=== PATIENT | male | born 1985 | race Caucasian/White ===

== ENCOUNTER 2018-07-08 15:38 | Emergency (ER) | payer BC, OTHER ==
[2018-07-08] MEDS ORDERED: LIDOCAINE 1% MPF 5 ML VIAL ONE (17:05)
[2018-07-08] MEDS ORDERED: TETANUS & DIPHTHERIA TOX,ADULT 0.5 ML VIAL ONE (17:06)
--- NOTE | 2018-07-08 18:16 | EDPHYS ---
Physician Documentation [facility] Name: Tan Key Age: 33 yrs Sex: Male : 1985 Arrival Date: 07/08/2018 Time: 15:40 Bed 25 Private MD: Berhane Wise ED Physician Abraham Keyes HPI: 07/08 18:15 This 33 yrs old Male presents to ER via Ambulatory with complaints of pm1 LACERATION TO THUMB. 18:15 The patient or guardian reports a laceration, irregular, 2 cm(s). The complaints affect pm1 the dorsal aspect of proximal phalanx of left thumb. Context: The problem was sustained at home, resulted from cut on automotive fan while working on car. Onset: The symptoms/episode began/occurred just prior to arrival. Modifying factors: The symptoms are alleviated by pressure to area, the symptoms are aggravated by nothing. Associated signs and symptoms: Pertinent negatives: cyanosis distally, decreased sensation distally, numbness distally, tingling distally. The patient has not experienced similar symptoms in the past. The patient has not recently seen a physician. Historical: - Allergies: 15:46 No Known Allergies; aa5 - PMHx: 15:46 None; aa5 - PSHx: 15:46 Knee surgery; aa5 - Immunization history:: Last tetanus immunization: unknown. - Social history:: Smoking status: Patient/guardian denies using tobacco. - Ebola Screening: : No symptoms or risks identified at this time. ROS: 18:15 Constitutional: Negative for fever, chills, and weight loss, Eyes: Negative for injury, pm1 pain, redness, and discharge, ENT: Negative for injury, pain, and discharge, Neck: Negative for injury, pain, and swelling, Cardiovascular: Negative for chest pain, palpitations, and edema, Respiratory: Negative for shortness of breath, cough, wheezing, and pleuritic chest pain, Abdomen/GI: Negative for abdominal pain, nausea, vomiting, diarrhea, and constipation, Back: Negative for injury and pain. 18:15 Neuro: Negative for headache, weakness, numbness, tingling, and seizure. 18:15 MS/extremity: Positive for laceration, of the dorsal aspect of proximal phalanx of left thumb, Negative for decreased range of motion, deformity. 18:15 Skin: Positive for laceration(s). Exam: 18:15 Constitutional: This is a well developed, well nourished patient who is awake, alert, pm1 and in no acute distress. Head/Face: Normocephalic, atraumatic. Eyes: Pupils equal round and reactive to light, extra-ocular motions intact. Lids and lashes normal. Conjunctiva and sclera are non-icteric and not injected. Cornea within normal limits. Periorbital areas with no swelling, redness, or edema. ENT: Nares patent. No nasal discharge, no septal abnormalities noted. Tympanic membranes are normal and external auditory canals are clear. Oropharynx with no redness, swelling, or masses, exudates, or evidence of obstruction, uvula midline. Mucous membranes moist. Neck: Trachea midline, no thyromegaly or masses palpated, and no cervical lymphadenopathy. Supple, full range of motion without nuchal rigidity, or vertebral point tenderness. No Meningismus. Chest/axilla: Normal chest wall appearance and motion. Nontender with no deformity. No lesions are appreciated. Cardiovascular: Regular rate and rhythm with a normal S1 and S2. No gallops, murmurs, or rubs. Normal PMI, no JVD. No pulse deficits. Respiratory: Lungs have equal breath sounds bilaterally, clear to auscultation and percussion. No rales, rhonchi or wheezes noted. No increased work of breathing, no retractions or nasal flaring. Abdomen/GI: Soft, non-tender, with normal bowel sounds. No distension or tympany. No guarding or rebound. No evidence of tenderness throughout. Back: No spinal tenderness. No costovertebral tenderness. Full range of motion. 18:15 Skin: Appearance: normal except for affected area, injury, laceration(s), the wound is approximately 2 cm(s), with a depth of 1 cm(s), of the dorsal aspect of proximal phalanx of left thumb. 18:15 Neuro: Orientation: is normal, Gait: is steady, at a normal pace, without difficulty. Vital Signs: 15:48 BP 136 / 76; Pulse 59; Resp 16 S; Temp 97.0(TE); Pulse Ox 98% on R/A; Weight 99.79 kg aa5 (R); Height 6 ft. 2 in. (187.96 cm) (R); Pain 3/10; 15:48 Body Mass Index 28.25 (99.79 kg, 187.96 cm) aa5 Laceration: 18:15 Wound Repair of 2cm ( 0.8in ) subcutaneous laceration to dorsal aspect of proximal pm1 phalanx of left thumb. Irregularly shaped.. Distal neuro/vascular/tendon intact. Anesthesia: Local anesthetic administered with 1 mls of 1% lidocaine. Wound prep: Extensive cleansing with betadine with hibiclenz by me, Wound irrigation with saline by me, Wound explored extensively, Copious irrigation. Skin closed with 3 5-0 Prolene using horizontal mattress sutures and sterile technique. Dressed with Neosporin, 4x4's. Patient tolerated well. MDM: 16:16 Patient medically screened. pm1 18:14 Data reviewed: vital signs. Data interpreted: Pulse oximetry: on room air is 98 %. pm1 Interpretation: normal. Counseling: I had a detailed discussion with the patient and/or guardian regarding: the historical points, exam findings, and any diagnostic results supporting the discharge/admit diagnosis, the need for outpatient follow up, to return to the emergency department if symptoms worsen or persist or if there are any questions or concerns that arise at home. 07/08 16:33 Order name: Prolene, Sutures; Complete Time: 17:03 pm1 07/08 16:33 Order name: Dressing - Wound; Complete Time: 17:03 pm1 07/08 16:33 Order name: Gloves, Sterile; Complete Time: 17:03 pm1 07/08 16:33 Order name: Setup Suture Tray; Complete Time: 17:03 pm1 07/08 16:33 Order name: Wound Care; Complete Time: 17:03 pm1 Administered Medications: 17:03 Drug: Tetanus-Diphtheria Toxoid Adult 0.5 ml {Flour Distributor: [employer]. Exp: ss 06/13/2020. Lot #: [id number]. } Route: IM; Site: right deltoid; 18:07 Follow up: Response: No adverse reaction 18:06 Drug: Lidocaine (1 %) 5 ml {Note: 2-3 mL administered by DANICA Kowk.} Volume: 5 ml; ss Route: Infiltration; Disposition: 07/09 06:19 Co-signature as Attending Physician, Abraham Keyes MD I agree with the assessment and renan plan of care. Disposition: 07/08/18 18:15 Discharged to Home. Impression: Laceration without foreign body of left thumb without damage to nail. - Condition is Stable. - Discharge Instructions: Laceration Care, Adult. - Prescriptions for Keflex 500 mg Oral Capsule - take 1 capsule by ORAL route every 12 hours for 10 days; 20 capsule. Tylenol- Codeine #3 300-30 mg Oral Tablet - take 1 tablet by ORAL route every 6 hours As needed; 12 tablet. - Medication Reconciliation Form, Thank You Letter, Antibiotic Education, Prescription Opioid Use form. - Follow up: Emergency Department; When: As needed; Reason: Worsening of condition. Follow up: Berhane Wise MD; When: 10 - 14 days; Reason: Wound Recheck, Recheck today's complaints, Continuance of care, Staple/Suture removal, Re-evaluation by your physician. - Problem is new. - Symptoms have improved. Signatures: Abraham Keyes MD MD cha Calderon, Audri, RN RN aa5 Anna Davidson RN RN ss Sundar Carrero NP [employer]PER[employer] pm1 Corrections: (The following items were deleted from the chart) 07/08 18:26 18:15 07/08/2018 18:15 Discharged to Home. Impression: Laceration without foreign body ss of left thumb without damage to nail. Condition is Stable. Forms are Medication Reconciliation Form, Thank You Letter, Antibiotic Education, Prescription Opioid Use. Follow up: Emergency Department; When: As needed; Reason: Worsening of condition. Follow up: Berhane Wise; When: 10 - 14 days; Reason: Wound Recheck, Recheck today's complaints, Continuance of care, Staple/Suture removal, Re-evaluation by your physician. Problem is new. Symptoms have improved. pm1
--- NOTE | 2018-07-08 18:16 | ER ---
Nurse's Notes [facility] Name: Tan Key Age: 33 yrs Sex: Male : 1985 Arrival Date: 07/08/2018 Time: 15:40 Bed 25 Private MD: Berhane Wise Diagnosis: Laceration without foreign body of left thumb without damage to nail Presentation: 07/08 15:46 Presenting complaint: Patient states: "A fan from a car came off and it got my hand". aa5 Laceration approximately 1 cm long noted to left thumb, no active bleeding noted. Transition of care: patient was not received from another setting of care. Onset of symptoms was June 2018. Risk Assessment: Do you want to hurt yourself or someone else? Patient reports no desire to harm self or others. Initial Sepsis Screen: Does the patient meet any 2 criteria? No. Patient's initial sepsis screen is negative. Does the patient have a suspected source of infection? No. Patient's initial sepsis screen is negative. Care prior to arrival: None. 15:46 Method Of Arrival: Ambulatory aa5 15:46 Acuity: SANKET 4 aa5 Historical: - Allergies: 15:46 No Known Allergies; aa5 - PMHx: 15:46 None; aa5 - PSHx: 15:46 Knee surgery; aa5 - Immunization history:: Last tetanus immunization: unknown. - Social history:: Smoking status: Patient/guardian denies using tobacco. - Ebola Screening: : No symptoms or risks identified at this time. Screenin:20 Abuse screen: Denies threats or abuse. Denies injuries from another. Nutritional ss screening: No deficits noted. Tuberculosis screening: No symptoms or risk factors identified. Never had TB. Fall Risk None identified. Assessment: 16:20 General: Appears in no apparent distress. comfortable, Behavior is calm, cooperative. ss Pain: Complains of pain in dorsal aspect of proximal phalanx of left thumb Pain currently is 3 out of 10 on a pain scale. Pain began 3 hours ago. Is continuous. Neuro: Level of Consciousness is awake, alert, obeys commands, Oriented to person, place, time, situation. Cardiovascular: Capillary refill < 3 seconds is brisk in bilateral fingers Patient's skin is warm and dry. Respiratory: Airway is patent Respiratory effort is even, unlabored, Respiratory pattern is regular, symmetrical. Derm: Skin is pink, warm \\T\\ dry. Injury Description: Laceration sustained to dorsal aspect of proximal phalanx of left thumb is 0.5 to 2.5 cm long, was sustained 2-4 hours ago. no active bleeding noted at this time. 17:00 Reassessment: awaiting for sutures to be placed. ss 17:40 Reassessment: Wound care: wound soaking in NS + Betadine solution. ss Vital Signs: 15:48 BP 136 / 76; Pulse 59; Resp 16 S; Temp 97.0(TE); Pulse Ox 98% on R/A; Weight 99.79 kg aa5 (R); Height 6 ft. 2 in. (187.96 cm) (R); Pain 3/10; 15:48 Body Mass Index 28.25 (99.79 kg, 187.96 cm) aa5 ED Course: 15:40 Patient arrived in ED. rg4 15:40 Berhane Wise MD is Private Physician. rg4 15:46 Arm band placed on. aa5 15:48 Triage completed. aa5 16:15 Sundar Carrero NP is PHCP. pm1 16:15 Abraham Keyes MD is Attending Physician. pm1 16:17 Anna Davidson RN is Primary Nurse. ss 16:20 Patient has correct armband on for positive identification. Bed in low position. Call ss light in reach. 18:14 Berhane Wise MD is Referral Physician. pm1 18:24 No provider procedures requiring assistance completed. Patient did not have IV access ss during this emergency room visit. Wound care: to laceration located on dorsal aspect of proximal phalanx of left thumb was cleaned with soap and water, soaked in Betadine solution, irrigated with normal saline, dressed with Neosporin, 4X4s, Kerlix, Patient tolerated well. Administered Medications: 17:03 Drug: Tetanus-Diphtheria Toxoid Adult 0.5 ml {Clinical Trial Head: [employer]. Exp: ss 06/13/2020. Lot #: [id number]. } Route: IM; Site: right deltoid; 18:07 Follow up: Response: No adverse reaction ss 18:06 Drug: Lidocaine (1 %) 5 ml {Note: 2-3 mL administered by DANICA Kwok.} Volume: 5 ml; ss Route: Infiltration; Outcome: 18:15 Discharge ordered by MD. pm1 18:24 Discharged to home ambulatory, with family. 18:24 Condition: good 18:24 Discharge instructions given to patient, family, Instructed on discharge instructions, follow up and referral plans. medication usage, Demonstrated understanding of instructions, follow-up care, medications, Prescriptions given X 2. 18:26 Patient left the ED. Signatures: Iva Connor RN RN aa5 Anna Davidson RN RN ss Sundar Carrero NP BRISKET PULLER pm1 Navya Fitch4
[2018-07-08 19:54] VITALS: BP 136/76; TEMP 97; O2SAT 98
== END 2018-07-08 18:26 | disposition home or self-care (01) ==
LOC: ER 15:38
PROC: 0JQK0ZZ Repair Left Hand Subcutaneous Tissue and Fascia, Open Approach (ICD-10-PCS; principal; 2018-07-08)
DX: S61.012A Laceration without foreign body of left thumb without damage to nail, initial encounter (principal); W26.8XXA Contact with other sharp object(s), not elsewhere classified, initial encounter; Y93.89 Activity, other specified; Y92.009 Unspecified place in unspecified non-institutional (private) residence as the place of occurrence of the external cause; Z23 Encounter for immunization
CPT/HCPCS: 90714; 99284

== ENCOUNTER 2019-01-23 19:29 | Emergency (ER) | payer OTHER ==
--- OUTSIDE RECORDS SUMMARY | 2019-01-23 19:31 | XMS REPORT ---
:1985 Author Organization [facility] Address [address] [place] [address] [address] [place] [address] Care Team Providers Name Role Phone Unavailable Unavailable Unavailable Problems This patient has no known problems. Allergies, Adverse Reactions, Alerts This patient has no known allergies or adverse reactions. Medications This patient has no known medications.
[2019-01-23] MEDS ORDERED: ONDANSETRON 4 MG/2 ML VIAL ONE (20:58)
[2019-01-23] MEDS ORDERED: MORPHINE 4 MG/ML SYR ONE (20:58)
[2019-01-23] MEDS ORDERED: DEXAMETHASONE 10 MG/ML VIAL ONE (20:58)
[2019-01-23] MEDS ORDERED: DIAZEPAM 10 MG/2 ML INJ SYRINGE ONE (21:25)
[2019-01-23] MEDS ORDERED: FENTANYL CITR 100 MCG/2 ML ONE (21:41)
--- NOTE | 2019-01-23 22:02 | RAD REPORT ---
EXAM DESCRIPTION: RAD - Lumbar Spine 3 Views - 01/23/2019 9:46 pm CLINICAL HISTORY: low back pain Radiculopathy COMPARISON: <Comparisons> FINDINGS: Vertebral body heights appear maintained. No compression fracture noted. Mild disc thinnin g at L4-5 and L5-S1. No spondylolysis or spondylolisthesis. IMPRESSION: Mild lower lumbar spondylosis.
--- NOTE | 2019-01-23 23:18 | EDPHYS ---
Physician Documentation [facility] Name: Tan Key Age: 34 yrs Sex: Male : 1985 Arrival Date: 01/23/2019 Time: 19:32 Bed 28 Private MD: Berhane Wise ED Physician Abraham Keyes HPI: 01/23 20:37 This 34 yrs old Male presents to ER via Ambulatory with complaints of Hip jmm Pain. 20:37 The patient or guardian reports pain. Onset: The symptoms/episode began/occurred jmm gradually, 3 day(s) ago. Modifying factors: The symptoms are alleviated by remaining still, the symptoms are aggravated by any movement. Associated signs and symptoms: Pertinent negatives:. This is a 34 year old male with no chronic medical conditions that presents to the ED with complaints of left leg pain and lower back pain. Symptoms began after slipped and falling from a standing position. Patient states lower back pain has decreased put now mainly has pain which radiates down his left leg. Denies weakness, denies bowel or urinary problems, denies fever. . Historical: - Allergies: 19:45 No Known Allergies; ed1 - Home Meds: 19:45 None [Active]; ed1 - PMHx: 19:45 None; ed1 - PSHx: 19:45 Knee surgery; ed1 - Immunization history:: Adult Immunizations up to date. - Social history:: Smoking status: Patient/guardian denies using tobacco. - Ebola Screening: : Patient negative for fever greater than or equal to 101.5 degrees Fahrenheit, and additional compatible Ebola Virus Disease symptoms Patient denies exposure to infectious person Patient denies travel to an Ebola-affected area in the 21 days before illness onset No symptoms or risks identified at this time. ROS: 20:37 Constitutional: Negative for fever, chills, and weight loss, Cardiovascular: Negative jmm for chest pain, palpitations, and edema, Respiratory: Negative for shortness of breath, cough, wheezing, and pleuritic chest pain. 20:37 Back: Positive for pain with movement. 20:37 MS/extremity: Positive for pain. 20:37 All other systems are negative. Exam: 20:37 Head/Face: atraumatic. Eyes: EOMI, no conjunctival erythema appreciated ENT: Moist jmm Mucus Membranes Neck: Trachea midline, Supple Chest/axilla: Normal chest wall appearance and motion. Cardiovascular: Regular rate and rhythm. No edema appreciated Respiratory: Normal respirations, no respiratory distress appreciated Abdomen/GI: Non distended, soft 20:37 Skin: General appearance color normal 20:37 Constitutional: The patient appears alert, awake, in obvious pain. 20:37 Back: pain, that is mild, of the left low back, ROM is painless. 20:37 Musculoskeletal/extremity: ROM: intact in all extremities, compartments are soft, no edema appreciated, extensor hallucis longus intact. 20:37 Skin: Appearance: Color: normal in color. 20:37 Neuro: Orientation: is normal, Mentation: is normal, Memory: is normal. 20:37 Psych: Behavior/mood is pleasant, cooperative. Vital Signs: 19:45 BP 154 / 93; Pulse 67; Resp 20; Temp 98.1; Pulse Ox 99% on R/A; Weight 97.52 kg; Height ed1 6 ft. 2 in. (187.96 cm); Pain 10/10; 20:33 BP 156 / 90; Pulse 65; Resp 17 S; Temp 98(O); Pulse Ox 99% on R/A; ca1 21:30 BP 135 / 84; Pulse 66; Resp 17 S; Temp 98(O); Pulse Ox 99% on R/A; ca1 22:46 BP 130 / 78; Pulse 52; Resp 17 S; Temp 98; Pulse Ox 97% on R/A; ca1 23:49 BP 143 / 87; Pulse 70; Resp 17 S; Temp 98(O); Pulse Ox 99% on R/A; ca1 19:45 Body Mass Index 27.60 (97.52 kg, 187.96 cm) ed1 MDM: 20:37 Patient medically screened. [facility] 21:57 Data reviewed: vital signs, nurses notes. Transition of care: After a detail discussion preethi of the patient's case, care is transferred to Aris NEWMAN. 23:16 Data reviewed: radiologic studies, CT scan, plain films. Data interpreted: Pulse jr8 oximetry: on room air is 97 %. Interpretation: normal. Counseling: I had a detailed discussion with the patient and/or guardian regarding: the historical points, exam findings, and any diagnostic results supporting the discharge/admit diagnosis, radiology results, the need for outpatient follow up, a family practitioner, to return to the emergency department if symptoms worsen or persist or if there are any questions or concerns that arise at home. 01/23 20:38 Order name: Lumbar Spine (3 Views) XRAY; Complete Time: 22:17 [facility] 01/23 21:52 Order name: CT Stone Protocol [facility] 01/23 20:38 Order name: Saline Lock; Complete Time: 20:56 [facility] Administered Medications: 20:50 Drug: Zofran 4 mg Route: IVP; Site: left hand; ca1 23:00 Follow up: Response: No adverse reaction; Nausea is decreased ca1 20:53 Drug: morphine 4 mg Route: IVP; Site: left hand; ca1 23:00 Follow up: Response: No adverse reaction; Pain is decreased ca1 21:00 Drug: Decadron - Dexamethasone 10 mg Route: IVP; Site: left hand; ca1 23:00 Follow up: Response: No adverse reaction; Pain is decreased ca1 21:13 Drug: Valium 5 mg Route: IVP; Site: left hand; ca1 23:00 Follow up: Response: No adverse reaction; Pain is decreased ca1 21:30 Drug: fentaNYL (PF) 50 mcg Route: IVP; Site: left hand; ca1 23:52 Follow up: Response: No adverse reaction; Pain is decreased ca1 Disposition: 01/24 15:01 Co-signature as Attending Physician, Abraham Keyes MD I agree with the assessment and renan plan of care. Disposition: 01/23/19 23:17 Discharged to Home. Impression: Low back pain, Sciatica. - Condition is Stable. - Discharge Instructions: Back Pain, Adult, Musculoskeletal Pain, Back Exercises, [id number], Heat Therapy. - Prescriptions for Ibuprofen 800 mg Oral Tablet - take 1 tablet by ORAL route every 12 hours As needed take with food; 20 tablet. Medrol (Morro) 4 mg Oral Tablets, Dose Pack - take 1 tablet by ORAL route as directed - follow package instructions; 1 packet. Zanaflex 4 mg Oral Tablet - take 1 tablet by ORAL route every 8 hours As needed; 20 tablet. - Medication Reconciliation Form, Thank You Letter, Antibiotic Education, Prescription Opioid Use form. - Follow up: Private Physician; When: 5 - 6 days; Reason: Recheck today's complaints, Continuance of care, Re-evaluation by your physician. - Problem is new. - Symptoms have improved. Signatures: Dispatcher [employer] EDMS Abraham Keyes MD MD cha Mickail, Joel, PA PA jmm Riggs, Erika, ANGELICA RN ed1 Aris Crews PA PA jr8 Rachel Luna RN RN ca1 Corrections: (The following items were deleted from the chart) 01/23 23:17 23:17 01/23/2019 23:17 Discharged to Home. Impression: Pain in hip. Condition is jr8 Stable. Forms are Medication Reconciliation Form, Thank You Letter, Antibiotic Education, Prescription Opioid Use. Follow up: Private Physician; When: 5 - 6 days; Reason: Recheck today's complaints, Continuance of care, Re-evaluation by your physician. Problem is new. Symptoms have improved. jr8 23:51 23:17 01/23/2019 23:17 Discharged to Home. Impression: Low back pain; Sciatica. ca1 Condition is Stable. Forms are Medication Reconciliation Form, Thank You Letter, Antibiotic Education, Prescription Opioid Use. Follow up: Private Physician; When: 5 - 6 days; Reason: Recheck today's complaints, Continuance of care, Re-evaluation by your physician. Problem is new. Symptoms have improved. jr8
--- NOTE | 2019-01-23 23:18 | ER ---
Nurse's Notes [facility] Name: Tan Key Age: 34 yrs Sex: Male : 1985 Arrival Date: 01/23/2019 Time: 19:32 Bed 28 Private MD: Berhane Wise Diagnosis: Low back pain;Sciatica Presentation: 01/23 19:43 Presenting complaint: Patient states: I am having sciatic nerve pain. I haven't slept ed1 in about 3 days because the pain is so bad. Transition of care: patient was not received from another setting of care. Onset of symptoms was January 23, 2019. Risk Assessment: Do you want to hurt yourself or someone else? Patient reports no desire to harm self or others. Initial Sepsis Screen: Does the patient meet any 2 criteria? No. Patient's initial sepsis screen is negative. Does the patient have a suspected source of infection? No. Patient's initial sepsis screen is negative. Care prior to arrival: Medication(s) given: Motrin, Toradol, Tramadol. 19:43 Method Of Arrival: Ambulatory ed1 19:43 Acuity: SANKET 4 ed1 Triage Assessment: 19:45 General: Appears uncomfortable, Behavior is calm, cooperative. Pain: Complains of pain ed1 in left upper thigh Pain radiates to left foot and left leg Pain currently is 10 out of 10 on a pain scale. Historical: - Allergies: 19:45 No Known Allergies; ed1 - Home Meds: 19:45 None [Active]; ed1 - PMHx: 19:45 None; ed1 - PSHx: 19:45 Knee surgery; ed1 - Immunization history:: Adult Immunizations up to date. - Social history:: Smoking status: Patient/guardian denies using tobacco. - Ebola Screening: : Patient negative for fever greater than or equal to 101.5 degrees Fahrenheit, and additional compatible Ebola Virus Disease symptoms Patient denies exposure to infectious person Patient denies travel to an Ebola-affected area in the 21 days before illness onset No symptoms or risks identified at this time. Screenin:33 Abuse screen: Denies threats or abuse. Denies injuries from another. Nutritional ca1 screening: No deficits noted. Tuberculosis screening: No symptoms or risk factors identified. Fall Risk None identified. Assessment: 20:33 General: Appears in no apparent distress. uncomfortable, Behavior is calm, cooperative, ca1 appropriate for age. General: Pt reports of falling on her left hip on Sunday, went to see the [facility] doctor. Given Toradol at around 1130 today but did not help with the pain. Is scheduled to have an X-ray tomorrow but could not tolerate na pain anymore. . Pain: Complains of pain in left lower back and left gluteus deepa Pain radiates to groin and left leg Pain currently is 10 out of 10 on a pain scale. Quality of pain is described as sharp, shooting, Pain began 2-3 days ago. Is intermittent, Aggravated by increased activity, weight bearing. Neuro: Level of Consciousness is awake, alert, obeys commands, Oriented to person, place, time, situation. Cardiovascular: Heart tones S1 S2 present Capillary refill < 3 seconds Patient's skin is warm and dry. Respiratory: Airway is patent Respiratory effort is even, unlabored, Respiratory pattern is regular, symmetrical, Breath sounds are clear bilaterally. GI: No deficits noted. No signs and/or symptoms were reported involving the gastrointestinal system. : No deficits noted. No signs and/or symptoms were reported regarding the genitourinary system. EENT:. Derm: Skin is intact, is healthy with good turgor, Skin is pink, warm \T\ dry. Musculoskeletal: Circulation, motion, and sensation intact. Capillary refill < 3 seconds, Range of motion: limited in left hip. 21:45 Reassessment: Pt to Xray. ca1 22:10 Reassessment: Patient appears in no apparent distress at this time. Patient is alert, ca1 oriented x 3, equal unlabored respirations, skin warm/dry/pink. 22:45 Reassessment: Patient appears in no apparent distress at this time. Patient and/or ca1 family updated on plan of care and expected duration. Pain level reassessed. Patient is alert, oriented x 3, equal unlabored respirations, skin warm/dry/pink. Reassessment: Patient states feeling better. 23:49 Reassessment: Patient appears in no apparent distress at this time. Patient is alert, ca1 oriented x 3, equal unlabored respirations, skin warm/dry/pink. Vital Signs: 19:45 BP 154 / 93; Pulse 67; Resp 20; Temp 98.1; Pulse Ox 99% on R/A; Weight 97.52 kg; Height ed1 6 ft. 2 in. (187.96 cm); Pain 10/10; 20:33 BP 156 / 90; Pulse 65; Resp 17 S; Temp 98(O); Pulse Ox 99% on R/A; ca1 21:30 BP 135 / 84; Pulse 66; Resp 17 S; Temp 98(O); Pulse Ox 99% on R/A; ca1 22:46 BP 130 / 78; Pulse 52; Resp 17 S; Temp 98; Pulse Ox 97% on R/A; ca1 23:49 BP 143 / 87; Pulse 70; Resp 17 S; Temp 98(O); Pulse Ox 99% on R/A; ca1 19:45 Body Mass Index 27.60 (97.52 kg, 187.96 cm) ed1 ED Course: 19:32 Patient arrived in ED. es 19:34 Berhane Wise MD is Private Physician. es 19:45 Triage completed. ed1 19:45 Arm band placed on left wrist. Patient placed in waiting room, in view of staff members.ed1 20:27 Rachel Luna, ANGELICA is Primary Nurse. ca1 20:30 Sundeep Hand PA is PHCP. jmm 20:30 Abraham Keyes MD is Attending Physician. jmm 20:33 Patient has correct armband on for positive identification. Bed in low position. Call ca1 light in reach. Side rails up X 1. Pulse ox on. NIBP on. Warm blanket given. 20:50 Inserted saline lock: 22 gauge in left hand, using aseptic technique. ca1 20:50 No provider procedures requiring assistance completed. ca1 21:17 Radiology exam delayed due to PT STATES THAT THE PAIN IS TOO BAD AND IS UNABLE TO LAY sw FLAT OR ON SIDE FOR XRAY. 21:45 Lumbar Spine (3 Views) XRAY In Process Unspecified. EDMS 22:17 PHCP role handed off by Sundeep Hand PA [email or web address] 22:17 Aris Crews PA is PHCP. jrRadha 22:24 CT Stone Protocol In Process Unspecified. EDMS 23:50 IV discontinued, intact, bleeding controlled, No redness/swelling at site. Pressure ca1 dressing applied. Administered Medications: 20:50 Drug: Zofran 4 mg Route: IVP; Site: left hand; ca1 23:00 Follow up: Response: No adverse reaction; Nausea is decreased ca1 20:53 Drug: morphine 4 mg Route: IVP; Site: left hand; ca1 23:00 Follow up: Response: No adverse reaction; Pain is decreased ca1 21:00 Drug: Decadron - Dexamethasone 10 mg Route: IVP; Site: left hand; ca1 23:00 Follow up: Response: No adverse reaction; Pain is decreased ca1 21:13 Drug: Valium 5 mg Route: IVP; Site: left hand; ca1 23:00 Follow up: Response: No adverse reaction; Pain is decreased ca1 21:30 Drug: fentaNYL (PF) 50 mcg Route: IVP; Site: left hand; ca1 23:52 Follow up: Response: No adverse reaction; Pain is decreased ca1 Outcome: 23:17 Discharge ordered by . maia 23:50 Discharged to home via wheelchair. ca1 23:50 Discharged to home via wheelchair, with family. 23:50 Condition: stable 23:50 Discharge instructions given to patient, Instructed on discharge instructions, follow up and referral plans. medication usage, Demonstrated understanding of instructions, follow-up care, medications. 23:51 Patient left the ED. ca1 Signatures: Dispatcher [employer] EDMS Sundeep Hand PA PA jmm Salyer, Edna es Riggs, Erika, RN RN ed1 Aris Crews PA PA [id number] Warren, Shannon sw Acob, Cheryl, RN RN ca1 Corrections: (The following items were deleted from the chart) 22:47 22:10 BP 1 / ???; ca1 ca1
[2019-01-24 00:59] VITALS: TEMP 98
[2019-01-24 01:05] VITALS: BP 143/87; O2SAT 99
--- NOTE | 2019-01-24 13:05 | RAD REPORT ---
EXAM DESCRIPTION: Stone Protocol CLINICAL HISTORY: 34 years Male lower back pain COMPARISON: None TECHNIQUE: Images were obtained in axial, sagittal, and coronal planes. No oral or intravenous contr ast was administered. This exam was performed according to our departmental dose-optimization program which includes use of Automated Exposure Control, adjustment of the mA and/or kV according to patient size and/or use of i terative reconstruction technique. FINDINGS: No obstructing renal calcifications bilaterally. No hydronephrosis bilaterally. Incomplete ly distended bladder. No abnormality involving the liver, spleen, pancreas, gallbladder, or adrenal glands bilaterally. Appendix within normal limits. No bowel obstruction, perforation, or inflammation. No dilatation abdominal aorta. No adenopathy or abnormal fluid collections seen. No acute osseous abnormality. No abnormality lower lungs bilaterally. IMPRESSION: No acute intra-abdominal abnormality. Electronically signed by: Garima Alegre MD 01/23/2019 10:40 PM CDT Due to temporary technical issues with the PACS/Fluency reporting system, reports are being signed by the in house radiologist as a courtesy to ensure prompt reporting. The interpreting radiologist is f ully responsible for the content of the report.
== END 2019-01-23 23:51 | disposition home or self-care (01) ==
LOC: ER 19:29
DX: M54.5 Low back pain (principal); M54.30 Sciatica, unspecified side
CPT/HCPCS: 72100; 74176; 76377; 96374; 96375; 99284; J1100; J2405; J3010; J3360

== ENCOUNTER 2021-03-09 08:56 | Day surgery (SDC) | payer OTHER ==
[2021-03-04 16:41] LABS: Absolute Lymphocytes (CBC) 2.3 K/uL (0.7-4.9); Basophils % 0.7 % (0-1.3); Lymphocytes % 25.9 % (15.3-44.8); MPV 9.3 fL (7.6-11.3); RBC Red Blood Cell Count 4.85 M/uL (4.33-5.43)
[2021-03-04 17:02] LABS: Potassium 4.3 mmol/L (3.5-5.1)
[2021-03-09] MEDS ORDERED: Ringers Lactate 1,000 ML IV ONE (09:32)
[2021-03-09] MEDS ORDERED: CEFOXITIN/SWI 1gm 1 GM/10 ML SYR ONE (09:36)
[2021-03-09] MEDS ORDERED: FENTANYL CITR 100 MCG/2 ML ONE (09:48)
[2021-03-09] MEDS ORDERED: propofoL 200 MG/20 ML VIAL IV ONE ×2 (09:48→10:34)
[2021-03-09] MEDS ORDERED: MIDAZOLAM HCL 2 MG/2 ML INJ ONE (09:48)
[2021-03-09] MEDS ORDERED: KETOROLAC 30 MG/ML INJ ONE (09:49)
[2021-03-09] MEDS ORDERED: LIDOCAINE 2% MPF 5 ML VIAL ONE (09:49)
[2021-03-09] MEDS ORDERED: dexAMETHasone 10 MG/ML VIAL ONE (09:49)
[2021-03-09] MEDS ORDERED: ONDANSETRON 4 MG/2 ML VIAL ONE (09:49)
[2021-03-09] MEDS ORDERED: KETAMINE HCL 500 MG/5 ML VIAL ONE (09:55)
[2021-03-09] MEDS ORDERED: BUPIVACAINE 0.5% PF 10 ML VIAL ONE (10:15)
[2021-03-09] MEDS: FENTANYL CITR 100 MCG/2 ML ONE ×2 (11:08→11:16)
[2021-03-09 11:36] VITALS: TEMP 97
--- NOTE | 2021-03-09 11:41 | OP ---
Date of Procedure: 03/09/2021 Surgeon: John Turcios MD Intraoperative Neuro Tech: None. 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 Procedures: Exam under anesthesia, rigid proctoscopy, and excision of multiple perianal condyloma ma sses greater than 50, ranging in size from 2 mm to 1 cm. Estimated Blood Loss: Minimal. Specimen: Perianal mass, likely condyloma. Finding: As above. Anesthesia: General. Complications: None. Disposition: The patient tolerated the procedure in stable condition and taken to Recovery in good g eneral condition. Procedure In Detail: The patient was brought to the OR and placed in supine position. General anest hesia begun. The patient was placed in lithotomy position, prepped and draped in the usual sterile f ashion. Exam under anesthesia and rigid proctoscopy performed and multiple condyloma lesions were se en on the perianal skin. There was also a little prolapse of the rectal mucosa from the 12 to 3 o'cl ock position. There were no other masses seen or disease identified and these ranged in size between 2 mm to 10 mm. All of them were excised by cautery to the normal dermis and sent to Pathology. The y were greater than 50. Bleeding controlled with cautery and then sterile dressing was applied. The patient was awakened and taken to Recovery in good general condition. Discharge Note: The patient will go to Day Surgery and home when stable. Disposition: Home. Condition: Stable. Discharge Instructions: Resume home medications and diet. Activity as tolerated. No heavy lifting. Sitz baths q.i.d., high-fiber diet, Metamucil 1 tablespoon p.o. t.i.d., Colace 100 mg p.o. b.i.d., Tylenol No.3 one tablet p.o. q.4 p.r.n. pain, Procto-HC 2.5% to anus b.i.d. and p.r.n. Follow up in my office in 2 weeks. Call for appointment. LUIGI/CARLENE Voice ID: [id number] Report ID: [id number]
[2021-03-09] MEDS ORDERED: HYDROCODONE/APAP 7.5/325 MG TAB ONE (13:07)
[2021-03-09 14:31] VITALS: BP 154/82; O2SAT 97
== END 2021-03-09 13:27 | disposition home or self-care (01) ==
LOC: OR 08:56
PROVIDERS: ATTEND Surgery
PROC: 0DBP8ZZ Excision of Rectum, Via Natural or Artificial Opening Endoscopic (ICD-10-PCS; principal; 2021-03-09 10:00)
DX: A63.0 Anogenital (venereal) warts (principal); L72.0 Epidermal cyst; D23.5 Other benign neoplasm of skin of trunk; Z20.822 Contact with and (suspected) exposure to COVID-19
CPT/HCPCS: 46922; 85025; 80048; 36415; 88305; U0002; J2704 ×2; J2250; J3010 ×2; J1100; J7120; J2405